=== PATIENT | male | born 2000 | race Hispanic/Latino ===

== ENCOUNTER 2021-01-07 10:23 | Emergency (ER) | payer SELFPAY ==
[~2021-01-07] VITALS: Ht 170.2 cm; Wt 65.8 kg
[2021-01-07] MEDS ORDERED: SODIUM CHLORIDE 0.9% 1000ML 1,000 ML IV STA ×2 (10:28)
[2021-01-07 10:55] LABS: BASOPHILS # (AUTO) 0.1 (0.0-0.1); BASOPHILS % 0.4 % (0.0-1.0); EOSINOPHILS % 0.1 % (0.0-6.0); HEMATOCRIT 47.2 % (38.2-49.6); HEMOGLOBIN 15.5 g/dL (14.0-18.0); LYMPHOCYTES # (AUTO) 1.3 (1.0-3.2); LYMPHOCYTES % 9.8 % (18.0-39.1); MEAN CORPUSCULAR HEMOGLOBIN 29.9 pg (28-32); MEAN CORPUSCULAR HGB CONC 32.8 g/dL (31-35); MEAN CORPUSCULAR VOLUME 91.1 fL (81-99); MONOCYTES # (AUTO) 0.9 (0.2-0.8); MONOCYTES % 6.8 % (4.4-11.3); NEUTROPHILS # (AUTO) 11.2 (2.1-6.9); NEUTROPHILS % 82.4 % (38.7-80.0); PLATELET COUNT 311 x10e3/uL (140-360); RED BLOOD COUNT 5.18 x10e6/uL (4.3-5.7); RED CELL DISTRIBUTION WIDTH 12.8 % (11.7-14.4)
[2021-01-07 11:40] LABS: ALBUMIN 4.9 g/dL (3.5-5.0); ALBUMIN/GLOBULIN RATIO 1.3 (0.8-2.0); ANION GAP 18.1 mmol/L (8-16); CREATININE, SERUM 1.69 mg/dL (0.72-1.25); POTASSIUM 4.1 mmol/L (3.5-5.1)
[2021-01-07 11:46] LABS: CREATINE KINASE MB 1.9 ng/mL (0-5.0)
[2021-01-07 12:23] VITALS: BP 122/75
== END 2021-01-07 12:24 | disposition home or self-care (01) ==
LOC: ER 10:26
DX: R42 Dizziness and giddiness (principal); R07.89 Other chest pain; E86.0 Dehydration
CPT/HCPCS: 36415; 71045; 80053; 82550; 82553; 83880; 84484; 85025; 93005; 99284; J7030